=== PATIENT | male | born 1950 | race Native Hawaiian/Other Pacific Islander ===

== ENCOUNTER 2017-02-21 11:50 | Outpatient (CLI) | payer OTHER | END 2017-02-21 13:00 | disposition home or self-care (01) | LOC: RESP 11:50 | DX: J98.4 Other disorders of lung (principal) | CPT/HCPCS: 94640; 94664 ==

== ENCOUNTER 2018-06-07 10:39 | Outpatient (CLI) | payer OTHER | END 2018-06-07 23:13 | disposition home or self-care (01) | LOC: RESP 10:39 → RAD 10:39 → RESP 11:00 | DX: J44.9 Chronic obstructive pulmonary disease, unspecified (principal) ==

== ENCOUNTER 2019-08-25 09:36 | Outpatient (CLI) | payer OTHER | END 2019-08-25 19:52 | disposition home or self-care (01) | LOC: RESP 09:36 | DX: J98.4 Other disorders of lung (principal) ==

== ENCOUNTER 2020-01-19 13:59 | Outpatient (CLI) | payer OTHER ==
[2020-01-19 14:13] LABS: PLATELET COUNT 288 K/uL (142-355)
== END 2020-01-19 20:08 | disposition home or self-care (01) ==
LOC: LAB 13:59
PROVIDERS: Nurse Practitioner Family
DX: D64.89 Other specified anemias (principal)
CPT/HCPCS: 85027

== ENCOUNTER 2020-01-26 10:51 | Outpatient (CLI) | payer OTHER ==
[2020-01-26 11:09] LABS: PLATELET COUNT 277 K/uL (142-355)
== END 2020-01-26 23:59 | disposition home or self-care (01) ==
LOC: LAB 10:51
PROVIDERS: Internal Medicine
DX: D64.9 Anemia, unspecified (principal)
CPT/HCPCS: 85027

== ENCOUNTER 2020-01-27 11:50 | Outpatient (CLI) | payer OTHER ==
[2020-01-27 13:30] LABS: PLATELET COUNT 267 K/uL (142-355)
[2020-01-27 13:34] LABS: POTASSIUM 5.1 mmol/L (3.6-5.2)
== END 2020-01-27 21:25 | disposition home or self-care (01) ==
LOC: LAB 11:50
PROVIDERS: Internal Medicine
DX: E11.9 Type 2 diabetes mellitus without complications (principal); N17.9 Acute kidney failure, unspecified
CPT/HCPCS: 80053; 85027

== ENCOUNTER 2020-02-02 13:50 | Outpatient (CLI) | payer OTHER ==
[2020-02-02 14:31] LABS: PLATELET COUNT 279 K/uL (142-355)
== END 2020-02-02 22:30 | disposition home or self-care (01) ==
LOC: LAB 13:50
PROVIDERS: Internal Medicine
DX: D64.89 Other specified anemias (principal)
CPT/HCPCS: 85027

== ENCOUNTER 2020-02-05 02:03 | Emergency (ER) | payer OTHER ==
[~2020-02-05] VITALS: Ht 180.3 cm; Wt 145.2 kg
[2020-02-05 03:35] VITALS: BP 168/88; TEMP 98.3
== END 2020-02-05 03:35 | disposition home or self-care (01) ==
LOC: ED 02:03
DX: S39.012A Strain of muscle, fascia and tendon of lower back, initial encounter (principal); W18.39XA Other fall on same level, initial encounter; Y92.89 Other specified places as the place of occurrence of the external cause
CPT/HCPCS: 96372; 99283; J1885

== ENCOUNTER 2020-02-09 11:33 | Outpatient (CLI) | payer OTHER ==
[2020-02-09 11:59] LABS: PLATELET COUNT 344 K/uL (142-355)
[2020-02-09 12:20] LABS: POTASSIUM 4.5 mmol/L (3.6-5.2)
== END 2020-02-09 19:18 | disposition home or self-care (01) ==
LOC: LAB 11:33
PROVIDERS: Internal Medicine
DX: D64.89 Other specified anemias (principal); N18.3 Chronic kidney disease, stage 3 (moderate); E11.29 Type 2 diabetes mellitus with other diabetic kidney complication; D63.1 Anemia in chronic kidney disease; I12.9 Hypertensive chronic kidney disease with stage 1 through stage 4 chronic kidney disease, or unspecified chronic kidney disease
CPT/HCPCS: 80048; 82040; 82728; 82746; 83036; 83540; 83550; 84100; 84550; 85027

== ENCOUNTER 2020-02-16 09:38 | Outpatient (CLI) | payer OTHER ==
[2020-02-16 09:52] LABS: PLATELET COUNT 310 K/uL (142-355)
[2020-02-16 10:08] LABS: POTASSIUM 4.3 mmol/L (3.6-5.2)
== END 2020-02-16 20:30 | disposition home or self-care (01) ==
LOC: LAB 09:38
PROVIDERS: Nurse Practitioner Family
DX: D64.89 Other specified anemias (principal)
CPT/HCPCS: 80053; 85027

== ENCOUNTER 2020-02-23 10:21 | Outpatient (CLI) | payer OTHER ==
[2020-02-23 10:37] LABS: POTASSIUM 4.1 mmol/L (3.6-5.2)
[2020-02-23 10:39] LABS: PLATELET COUNT 278 K/uL (142-355)
== END 2020-02-23 19:16 | disposition home or self-care (01) ==
LOC: LAB 10:21
PROVIDERS: Internal Medicine
DX: I12.9 Hypertensive chronic kidney disease with stage 1 through stage 4 chronic kidney disease, or unspecified chronic kidney disease (principal); N18.3 Chronic kidney disease, stage 3 (moderate); E11.29 Type 2 diabetes mellitus with other diabetic kidney complication; D64.89 Other specified anemias
CPT/HCPCS: 80053; 83036; 84100; 84550; 85027

== ENCOUNTER 2020-03-01 09:53 | Outpatient (CLI) | payer OTHER ==
[2020-03-01 11:05] LABS: PLATELET COUNT 321 K/uL (142-355)
== END 2020-03-01 22:59 | disposition home or self-care (01) ==
LOC: LAB 09:53
PROVIDERS: Internal Medicine
DX: R10.9 Unspecified abdominal pain (principal); D64.89 Other specified anemias
CPT/HCPCS: 80053; 80074; 82248; 85027

== ENCOUNTER 2020-03-09 09:35 | Outpatient (CLI) | payer OTHER ==
[2020-03-09 11:00] LABS: POTASSIUM 4.9 mmol/L (3.6-5.2)
== END 2020-03-09 19:20 | disposition home or self-care (01) ==
LOC: LAB 09:35
PROVIDERS: Internal Medicine
DX: D64.89 Other specified anemias (principal)
CPT/HCPCS: 80053

== ENCOUNTER 2020-03-10 10:04 | Outpatient (CLI) | payer OTHER ==
[2020-03-10 10:52] LABS: PLATELET COUNT 300 K/uL (142-355)
== END 2020-03-10 23:24 | disposition home or self-care (01) ==
LOC: LAB 10:04
PROVIDERS: Internal Medicine
DX: D64.89 Other specified anemias (principal)
CPT/HCPCS: 85027

== ENCOUNTER 2020-03-15 09:58 | Outpatient (CLI) | payer OTHER ==
[2020-03-15 10:14] LABS: PLATELET COUNT 328 K/uL (142-355)
[2020-03-15 10:20] LABS: POTASSIUM 5.1 mmol/L (3.6-5.2)
== END 2020-03-15 19:15 | disposition home or self-care (01) ==
LOC: LAB 09:58
PROVIDERS: Internal Medicine
DX: D64.89 Other specified anemias (principal); I12.9 Hypertensive chronic kidney disease with stage 1 through stage 4 chronic kidney disease, or unspecified chronic kidney disease; N18.3 Chronic kidney disease, stage 3 (moderate); I25.10 Atherosclerotic heart disease of native coronary artery without angina pectoris; E11.65 Type 2 diabetes mellitus with hyperglycemia
CPT/HCPCS: 80053; 85027

== ENCOUNTER 2020-03-22 10:27 | Outpatient (CLI) | payer OTHER ==
[2020-03-22 10:39] LABS: PLATELET COUNT 306 K/uL (142-355)
== END 2020-03-22 19:10 | disposition home or self-care (01) ==
LOC: LAB 10:27
PROVIDERS: Internal Medicine
DX: D64.89 Other specified anemias (principal)
CPT/HCPCS: 80053; 85027

== ENCOUNTER 2020-03-29 09:35 | Outpatient (CLI) | payer OTHER ==
[2020-03-29 09:58] LABS: POTASSIUM 5.7 mmol/L (3.6-5.2)
[2020-03-29 10:00] LABS: PLATELET COUNT 290 K/uL (142-355)
== END 2020-03-29 23:29 | disposition home or self-care (01) ==
LOC: LAB 09:35
PROVIDERS: Internal Medicine
DX: D64.89 Other specified anemias (principal)
CPT/HCPCS: 80053; 85027

== ENCOUNTER 2020-04-06 11:30 | Outpatient (CLI) | payer OTHER ==
[2020-04-06 13:42] LABS: PLATELET COUNT 295 K/uL (142-355)
== END 2020-04-07 00:41 | disposition home or self-care (01) ==
LOC: LAB 11:30
PROVIDERS: Internal Medicine
DX: D64.89 Other specified anemias (principal); I12.9 Hypertensive chronic kidney disease with stage 1 through stage 4 chronic kidney disease, or unspecified chronic kidney disease; N18.30 Chronic kidney disease, stage 3 unspecified
CPT/HCPCS: 80053; 85027

== ENCOUNTER 2020-04-12 10:06 | Outpatient (CLI) | payer OTHER ==
[2020-04-12 10:23] LABS: PLATELET COUNT 304 K/uL (142-355)
[2020-04-12 10:56] LABS: POTASSIUM 5.2 mmol/L (3.6-5.2)
== END 2020-04-12 19:11 | disposition home or self-care (01) ==
LOC: LAB 10:06
PROVIDERS: Internal Medicine
DX: D64.89 Other specified anemias (principal); I12.9 Hypertensive chronic kidney disease with stage 1 through stage 4 chronic kidney disease, or unspecified chronic kidney disease
CPT/HCPCS: 80053; 85027

== ENCOUNTER 2020-04-19 10:42 | Outpatient (CLI) | payer OTHER ==
[2020-04-19 11:01] LABS: PLATELET COUNT 290 K/uL (142-355)
[2020-04-19 11:05] LABS: POTASSIUM 4.8 mmol/L (3.6-5.2)
== END 2020-04-19 22:30 | disposition home or self-care (01) ==
LOC: LAB 10:42
PROVIDERS: Internal Medicine
DX: D64.89 Other specified anemias (principal); N19 Unspecified kidney failure
CPT/HCPCS: 80053; 85027

== ENCOUNTER 2020-04-26 10:08 | Outpatient (CLI) | payer OTHER ==
[2020-04-26 11:06] LABS: PLATELET COUNT 283 K/uL (142-355)
[2020-04-26 11:12] LABS: POTASSIUM 4.4 mmol/L (3.6-5.2)
== END 2020-04-26 20:28 | disposition home or self-care (01) ==
LOC: LAB 10:08
PROVIDERS: Internal Medicine
DX: D64.89 Other specified anemias (principal)
CPT/HCPCS: 80053; 85027

== ENCOUNTER 2020-05-17 10:48 | Outpatient (CLI) | payer OTHER ==
[2020-05-17 11:21] LABS: PLATELET COUNT 379 K/uL (142-355)
[2020-05-17 11:22] LABS: POTASSIUM 4.5 mmol/L (3.6-5.2)
== END 2020-05-17 23:15 | disposition home or self-care (01) ==
LOC: LAB 10:48
PROVIDERS: ATTEND Internal Medicine
DX: I12.9 Hypertensive chronic kidney disease with stage 1 through stage 4 chronic kidney disease, or unspecified chronic kidney disease (principal); N18.30 Chronic kidney disease, stage 3 unspecified
CPT/HCPCS: 80053; 85027

== ENCOUNTER 2020-05-24 17:42 | Outpatient (CLI) | payer OTHER ==
[2020-05-24 18:54] LABS: POTASSIUM 4.7 mmol/L (3.6-5.2)
[2020-05-24 18:57] LABS: PLATELET COUNT 315 K/uL (142-355)
== END 2020-05-24 19:01 | disposition home or self-care (01) ==
LOC: LAB 17:42
PROVIDERS: ATTEND Internal Medicine
DX: N18.30 Chronic kidney disease, stage 3 unspecified (principal)
CPT/HCPCS: 80053; 85007; 85027

== ENCOUNTER 2020-05-31 11:02 | Outpatient (CLI) | payer OTHER ==
[2020-05-31 11:30] LABS: PLATELET COUNT 181 K/uL (142-355)
[2020-05-31 11:47] LABS: POTASSIUM 4.4 mmol/L (3.6-5.2)
== END 2020-05-31 22:10 | disposition home or self-care (01) ==
LOC: LAB 11:02
PROVIDERS: ATTEND Internal Medicine
DX: D64.89 Other specified anemias (principal)
CPT/HCPCS: 80053; 85027

== ENCOUNTER 2020-06-07 10:34 | Outpatient (CLI) | payer OTHER ==
[2020-06-07 12:49] LABS: PLATELET COUNT 215 K/uL (142-355)
[2020-06-07 13:02] LABS: POTASSIUM 4.3 mmol/L (3.6-5.2)
== END 2020-06-07 19:41 | disposition home or self-care (01) ==
LOC: LAB 10:34
PROVIDERS: ATTEND Internal Medicine Hematology & Oncology
DX: C18.0 Malignant neoplasm of cecum (principal); D64.89 Other specified anemias; E53.8 Deficiency of other specified B group vitamins; N18.30 Chronic kidney disease, stage 3 unspecified; I12.9 Hypertensive chronic kidney disease with stage 1 through stage 4 chronic kidney disease, or unspecified chronic kidney disease
CPT/HCPCS: 80053; 82784; 83883; 84100; 84165; 84550; 85027

== ENCOUNTER 2020-06-14 10:31 | Outpatient (CLI) | payer OTHER ==
[2020-06-14 10:43] LABS: PLATELET COUNT 270 K/uL (142-355)
[2020-06-14 11:05] LABS: POTASSIUM 4.5 mmol/L (3.6-5.2)
== END 2020-06-14 21:28 | disposition home or self-care (01) ==
LOC: LAB 10:31
PROVIDERS: ATTEND Internal Medicine
DX: D64.89 Other specified anemias (principal); N18.30 Chronic kidney disease, stage 3 unspecified
CPT/HCPCS: 80053; 85027

== ENCOUNTER 2020-06-21 11:05 | Outpatient (CLI) | payer OTHER ==
[2020-06-21 11:34] LABS: PLATELET COUNT 273 K/uL (142-355)
== END 2020-06-21 19:37 | disposition home or self-care (01) ==
LOC: LAB 11:05
PROVIDERS: ATTEND Internal Medicine
DX: Z48.815 Encounter for surgical aftercare following surgery on the digestive system (principal); D64.89 Other specified anemias
CPT/HCPCS: 80053; 85027

== ENCOUNTER 2020-06-28 11:36 | Outpatient (CLI) | payer OTHER ==
[2020-06-28 12:16] LABS: PLATELET COUNT 261 K/uL (142-355)
[2020-06-28 12:26] LABS: POTASSIUM 4.2 mmol/L (3.6-5.2)
== END 2020-06-28 21:58 | disposition home or self-care (01) ==
LOC: LAB 11:36
PROVIDERS: ATTEND Internal Medicine
DX: I12.9 Hypertensive chronic kidney disease with stage 1 through stage 4 chronic kidney disease, or unspecified chronic kidney disease (principal); N18.30 Chronic kidney disease, stage 3 unspecified
CPT/HCPCS: 80053; 85027

== ENCOUNTER 2020-07-05 11:04 | Outpatient (CLI) | payer OTHER ==
[2020-07-05 11:43] LABS: PLATELET COUNT 254 K/uL (142-355)
[2020-07-05 11:54] LABS: POTASSIUM 4.3 mmol/L (3.6-5.2)
== END 2020-07-05 21:08 | disposition home or self-care (01) ==
LOC: LAB 11:04
PROVIDERS: ATTEND Internal Medicine
DX: D64.89 Other specified anemias (principal)
CPT/HCPCS: 80053; 85027

== ENCOUNTER 2020-07-12 10:48 | Outpatient (CLI) | payer OTHER ==
[2020-07-12 11:10] LABS: PLATELET COUNT 253 K/uL (142-355)
[2020-07-12 11:19] LABS: POTASSIUM 4.5 mmol/L (3.6-5.2)
== END 2020-07-12 20:33 | disposition home or self-care (01) ==
LOC: LAB 10:48
PROVIDERS: ATTEND Internal Medicine
DX: D64.89 Other specified anemias (principal); N18.30 Chronic kidney disease, stage 3 unspecified
CPT/HCPCS: 80053; 85027

== ENCOUNTER 2020-07-19 11:00 | Outpatient (CLI) | payer OTHER ==
[2020-07-19 11:36] LABS: PLATELET COUNT 236 K/uL (142-355)
[2020-07-19 11:49] LABS: POTASSIUM 4.3 mmol/L (3.6-5.2)
== END 2020-07-19 19:22 | disposition home or self-care (01) ==
LOC: LAB 11:00
PROVIDERS: ATTEND Internal Medicine
DX: I12.9 Hypertensive chronic kidney disease with stage 1 through stage 4 chronic kidney disease, or unspecified chronic kidney disease (principal); N18.30 Chronic kidney disease, stage 3 unspecified; E11.65 Type 2 diabetes mellitus with hyperglycemia
CPT/HCPCS: 80053; 84100; 84550; 85027

== ENCOUNTER 2020-07-26 10:05 | Outpatient (CLI) | payer OTHER ==
[2020-07-26 10:25] LABS: PLATELET COUNT 220 K/uL (142-355)
[2020-07-26 11:20] LABS: POTASSIUM 4.1 mmol/L (3.6-5.2)
== END 2020-07-26 19:02 | disposition home or self-care (01) ==
LOC: LAB 10:05
PROVIDERS: ATTEND Internal Medicine
DX: I12.9 Hypertensive chronic kidney disease with stage 1 through stage 4 chronic kidney disease, or unspecified chronic kidney disease (principal); N18.30 Chronic kidney disease, stage 3 unspecified; E11.65 Type 2 diabetes mellitus with hyperglycemia
CPT/HCPCS: 80053; 85027

== ENCOUNTER 2020-08-02 10:05 | Outpatient (CLI) | payer OTHER ==
[2020-08-02 10:18] LABS: PLATELET COUNT 236 K/uL (142-355)
[2020-08-02 10:27] LABS: POTASSIUM 3.9 mmol/L (3.6-5.2)
== END 2020-08-02 19:17 | disposition home or self-care (01) ==
LOC: LAB 10:05
PROVIDERS: ATTEND Internal Medicine
DX: D64.89 Other specified anemias (principal); N18.30 Chronic kidney disease, stage 3 unspecified; E11.65 Type 2 diabetes mellitus with hyperglycemia
CPT/HCPCS: 80053; 85008; 85027

== ENCOUNTER 2020-08-09 11:22 | Outpatient (CLI) | payer OTHER ==
[2020-08-09 12:27] LABS: POTASSIUM 4.2 mmol/L (3.6-5.2)
[2020-08-09 12:35] LABS: PLATELET COUNT 267 K/uL (142-355)
== END 2020-08-09 22:43 | disposition home or self-care (01) ==
LOC: LAB 11:22
PROVIDERS: ATTEND Internal Medicine
DX: I12.9 Hypertensive chronic kidney disease with stage 1 through stage 4 chronic kidney disease, or unspecified chronic kidney disease (principal); I25.10 Atherosclerotic heart disease of native coronary artery without angina pectoris; E11.65 Type 2 diabetes mellitus with hyperglycemia; D64.89 Other specified anemias
CPT/HCPCS: 80053; 85027

== ENCOUNTER 2020-08-16 10:34 | Outpatient (CLI) | payer OTHER ==
[2020-08-16 12:00] LABS: PLATELET COUNT 240 K/uL (142-355)
== END 2020-08-16 19:32 | disposition home or self-care (01) ==
LOC: LAB 10:34
PROVIDERS: ATTEND Internal Medicine
DX: E55.9 Vitamin D deficiency, unspecified (principal); M1A.09X0 Idiopathic chronic gout, multiple sites, without tophus (tophi); M32.10 Systemic lupus erythematosus, organ or system involvement unspecified; M85.89 Other specified disorders of bone density and structure, multiple sites; Z79.899 Other long term (current) drug therapy
CPT/HCPCS: 80053; 82306; 84550; 85027; 85652; 86140

== ENCOUNTER 2020-09-06 10:58 | Outpatient (CLI) | payer OTHER ==
[2020-09-06 11:47] LABS: PLATELET COUNT 242 K/uL (142-355)
[2020-09-06 12:59] LABS: POTASSIUM 3.9 mmol/L (3.6-5.2)
== END 2020-09-06 19:22 | disposition home or self-care (01) ==
LOC: LAB 10:58
PROVIDERS: ATTEND Internal Medicine Medical Oncology
DX: C18.0 Malignant neoplasm of cecum (principal); D64.89 Other specified anemias; E53.8 Deficiency of other specified B group vitamins
CPT/HCPCS: 80053; 82378; 82728; 83540; 83550; 85027; 85044

== ENCOUNTER 2020-10-11 10:54 | Outpatient (CLI) | payer OTHER ==
[2020-10-11 11:22] LABS: PLATELET COUNT 262 K/uL (142-355)
[2020-10-11 11:56] LABS: POTASSIUM 4.2 mmol/L (3.6-5.2)
== END 2020-10-11 19:13 | disposition home or self-care (01) ==
LOC: LAB 10:54
PROVIDERS: ATTEND Internal Medicine
DX: I12.9 Hypertensive chronic kidney disease with stage 1 through stage 4 chronic kidney disease, or unspecified chronic kidney disease (principal); N18.30 Chronic kidney disease, stage 3 unspecified; E11.29 Type 2 diabetes mellitus with other diabetic kidney complication
CPT/HCPCS: 80053; 80061; 83036; 84100; 85027

== ENCOUNTER 2020-10-22 09:57 | Outpatient (CLI) | payer OTHER ==
[2020-10-22 10:07] LABS: PLATELET COUNT 208 K/uL (142-355)
[2020-10-22 10:19] LABS: POTASSIUM 4.6 mmol/L (3.6-5.2)
== END 2020-10-22 20:53 | disposition home or self-care (01) ==
LOC: LAB 09:57
PROVIDERS: ATTEND Internal Medicine
DX: I12.9 Hypertensive chronic kidney disease with stage 1 through stage 4 chronic kidney disease, or unspecified chronic kidney disease (principal); N18.30 Chronic kidney disease, stage 3 unspecified; E11.65 Type 2 diabetes mellitus with hyperglycemia; N18.4 Chronic kidney disease, stage 4 (severe); E11.29 Type 2 diabetes mellitus with other diabetic kidney complication
CPT/HCPCS: 36415; 80069; 85027

== ENCOUNTER 2020-11-16 11:31 | Outpatient (CLI) | payer OTHER ==
[2020-11-16 11:52] LABS: PLATELET COUNT 258 K/uL (142-355)
[2020-11-16 12:33] LABS: POTASSIUM 4.3 mmol/L (3.6-5.2)
== END 2020-11-16 19:35 | disposition home or self-care (01) ==
LOC: LAB 11:31
PROVIDERS: ATTEND Nurse Practitioner Family
DX: E55.9 Vitamin D deficiency, unspecified (principal); M1A.09X0 Idiopathic chronic gout, multiple sites, without tophus (tophi); M32.10 Systemic lupus erythematosus, organ or system involvement unspecified; Z79.52 Long term (current) use of systemic steroids; Z79.899 Other long term (current) drug therapy
CPT/HCPCS: 80053; 82306; 85027; 85652; 86140; 86160; 86225

== ENCOUNTER 2020-11-19 10:37 | Outpatient (CLI) | payer OTHER | END 2020-11-19 22:19 | disposition home or self-care (01) | LOC: LAB 10:37 | PROVIDERS: ATTEND Nurse Practitioner Family | DX: E55.9 Vitamin D deficiency, unspecified (principal); M1A.09X0 Idiopathic chronic gout, multiple sites, without tophus (tophi); M32.10 Systemic lupus erythematosus, organ or system involvement unspecified; Z79.52 Long term (current) use of systemic steroids; Z79.899 Other long term (current) drug therapy | CPT/HCPCS: 81000 ==

== ENCOUNTER 2020-12-01 12:12 | Outpatient (CLI) | payer OTHER ==
[2020-12-01 12:46] LABS: PLATELET COUNT 230 K/uL (142-355)
== END 2020-12-01 21:02 | disposition home or self-care (01) ==
LOC: LAB 12:12
PROVIDERS: ATTEND Nurse Practitioner Family
DX: C18.0 Malignant neoplasm of cecum (principal); D64.89 Other specified anemias; E53.8 Deficiency of other specified B group vitamins
CPT/HCPCS: 80053; 82378; 82607; 82728; 82746; 82784; 82787; 83540; 83550; 83883; 84165; 85027; 85044

== ENCOUNTER 2020-12-13 10:50 | Outpatient (CLI) | payer OTHER ==
[2020-12-13 11:18] LABS: PLATELET COUNT 259 K/uL (142-355)
[2020-12-13 11:33] LABS: POTASSIUM 4.4 mmol/L (3.6-5.2)
== END 2020-12-13 20:00 | disposition home or self-care (01) ==
LOC: LAB 10:50
PROVIDERS: ATTEND Internal Medicine
DX: I12.9 Hypertensive chronic kidney disease with stage 1 through stage 4 chronic kidney disease, or unspecified chronic kidney disease (principal); N18.30 Chronic kidney disease, stage 3 unspecified
CPT/HCPCS: 80053; 85027

== ENCOUNTER 2021-01-10 11:13 | Outpatient (CLI) | payer OTHER ==
[2021-01-10 11:35] LABS: PLATELET COUNT 253 K/uL (142-355)
== END 2021-01-10 21:26 | disposition home or self-care (01) ==
LOC: LAB 11:13
PROVIDERS: ATTEND Internal Medicine
DX: D64.89 Other specified anemias (principal); E11.65 Type 2 diabetes mellitus with hyperglycemia; N18.30 Chronic kidney disease, stage 3 unspecified; I12.9 Hypertensive chronic kidney disease with stage 1 through stage 4 chronic kidney disease, or unspecified chronic kidney disease
CPT/HCPCS: 80053; 85027

== ENCOUNTER 2021-02-09 10:32 | Outpatient (CLI) | payer OTHER | END 2021-02-09 18:58 | disposition home or self-care (01) | LOC: LAB 10:32 | PROVIDERS: ATTEND Nurse Practitioner Family | DX: E55.9 Vitamin D deficiency, unspecified (principal); E56.8 Deficiency of other vitamins; M1A.09X0 Idiopathic chronic gout, multiple sites, without tophus (tophi); M32.10 Systemic lupus erythematosus, organ or system involvement unspecified; Z79.899 Other long term (current) drug therapy | CPT/HCPCS: 81000; 87088 ==

== ENCOUNTER 2021-03-01 13:01 | Outpatient (CLI) | payer OTHER ==
[2021-03-01 13:51] LABS: PLATELET COUNT 226 K/uL (142-355)
[2021-03-01 14:19] LABS: POTASSIUM 4.1 mmol/L (3.6-5.2)
== END 2021-03-01 20:53 | disposition home or self-care (01) ==
LOC: LAB 13:01
PROVIDERS: ATTEND Internal Medicine
DX: I12.9 Hypertensive chronic kidney disease with stage 1 through stage 4 chronic kidney disease, or unspecified chronic kidney disease (principal); N18.30 Chronic kidney disease, stage 3 unspecified
CPT/HCPCS: 80048; 82040; 84100; 84550; 85027

== ENCOUNTER 2021-03-10 11:28 | Outpatient (CLI) | payer OTHER ==
[2021-03-10 11:50] LABS: PLATELET COUNT 293 K/uL (142-355)
[2021-03-10 11:56] LABS: POTASSIUM 4.2 mmol/L (3.6-5.2)
== END 2021-03-10 19:11 | disposition home or self-care (01) ==
LOC: LAB 11:28
PROVIDERS: ATTEND Internal Medicine
DX: I12.9 Hypertensive chronic kidney disease with stage 1 through stage 4 chronic kidney disease, or unspecified chronic kidney disease (principal); N18.30 Chronic kidney disease, stage 3 unspecified
CPT/HCPCS: 80053; 85027

== ENCOUNTER 2021-04-07 14:08 | Outpatient (CLI) | payer OTHER ==
[2021-04-07 15:06] LABS: PLATELET COUNT 242 K/uL (142-355)
[2021-04-07 15:36] LABS: POTASSIUM 3.7 mmol/L (3.6-5.2)
== END 2021-04-07 19:34 | disposition home or self-care (01) ==
LOC: LAB 14:08
PROVIDERS: ATTEND Internal Medicine Medical Oncology
DX: C18.0 Malignant neoplasm of cecum (principal); D64.89 Other specified anemias; E53.8 Deficiency of other specified B group vitamins; N18.30 Chronic kidney disease, stage 3 unspecified; I12.9 Hypertensive chronic kidney disease with stage 1 through stage 4 chronic kidney disease, or unspecified chronic kidney disease
CPT/HCPCS: 80053; 82378; 84100; 84550; 85027

== ENCOUNTER 2021-04-18 10:29 | Outpatient (CLI) | payer OTHER ==
[2021-04-18 10:50] LABS: PLATELET COUNT 248 K/uL (142-355)
== END 2021-04-18 20:05 | disposition home or self-care (01) ==
LOC: LAB 10:29
PROVIDERS: ATTEND Internal Medicine
DX: I12.9 Hypertensive chronic kidney disease with stage 1 through stage 4 chronic kidney disease, or unspecified chronic kidney disease (principal); N18.30 Chronic kidney disease, stage 3 unspecified
CPT/HCPCS: 36415; 80069; 85027

== ENCOUNTER 2021-04-25 12:11 | Outpatient (CLI) | payer OTHER ==
[2021-04-25 12:56] LABS: PLATELET COUNT 268 K/uL (142-355)
[2021-04-25 13:19] LABS: POTASSIUM 3.8 mmol/L (3.6-5.2)
== END 2021-04-25 19:09 | disposition home or self-care (01) ==
LOC: LAB 12:11
PROVIDERS: ATTEND Internal Medicine
DX: I12.9 Hypertensive chronic kidney disease with stage 1 through stage 4 chronic kidney disease, or unspecified chronic kidney disease (principal); N18.30 Chronic kidney disease, stage 3 unspecified
CPT/HCPCS: 80069; 85027

== ENCOUNTER 2021-05-05 11:08 | Outpatient (CLI) | payer OTHER ==
[2021-05-05 11:19] LABS: PLATELET COUNT 253 K/uL (142-355)
[2021-05-05 11:39] LABS: POTASSIUM 3.8 mmol/L (3.6-5.2)
== END 2021-05-05 19:00 | disposition home or self-care (01) ==
LOC: LAB 11:08
PROVIDERS: ATTEND Internal Medicine
DX: N18.30 Chronic kidney disease, stage 3 unspecified (principal); N17.9 Acute kidney failure, unspecified
CPT/HCPCS: 80053; 84100; 84550; 85027

== ENCOUNTER 2021-05-11 10:18 | Outpatient (CLI) | payer OTHER ==
[2021-05-11 11:22] LABS: PLATELET COUNT 239 K/uL (142-355)
[2021-05-11 11:29] LABS: POTASSIUM 4.3 mmol/L (3.6-5.2)
== END 2021-05-11 20:42 | disposition home or self-care (01) ==
LOC: LAB 10:18
PROVIDERS: ATTEND Internal Medicine
DX: N18.30 Chronic kidney disease, stage 3 unspecified (principal); N17.9 Acute kidney failure, unspecified
CPT/HCPCS: 80048; 82040; 84100; 84550; 85027

== ENCOUNTER 2021-06-02 10:38 | Outpatient (CLI) | payer OTHER ==
[2021-06-02 13:40] LABS: POTASSIUM 4.2 mmol/L (3.6-5.2)
[2021-06-02 14:08] LABS: PLATELET COUNT 236 K/uL (142-355)
== END 2021-06-02 18:59 | disposition home or self-care (01) ==
LOC: LAB 10:38
PROVIDERS: ATTEND Nurse Practitioner Family
DX: I12.9 Hypertensive chronic kidney disease with stage 1 through stage 4 chronic kidney disease, or unspecified chronic kidney disease (principal); N18.30 Chronic kidney disease, stage 3 unspecified; E55.9 Vitamin D deficiency, unspecified; M1A.09X0 Idiopathic chronic gout, multiple sites, without tophus (tophi); M32.10 Systemic lupus erythematosus, organ or system involvement unspecified; M32.8 Other forms of systemic lupus erythematosus; Z79.899 Other long term (current) drug therapy
CPT/HCPCS: 80053; 82306; 84100; 84550; 85027; 85652; 86140; 86160; 86225

== ENCOUNTER 2021-06-20 10:39 | Outpatient (CLI) | payer OTHER ==
[2021-06-20 11:50] LABS: POTASSIUM 5.4 mmol/L (3.6-5.2)
[2021-06-20 11:54] LABS: PLATELET COUNT 204 K/uL (142-355)
== END 2021-06-20 19:01 | disposition home or self-care (01) ==
LOC: LAB 10:39
PROVIDERS: ATTEND Internal Medicine
DX: I12.9 Hypertensive chronic kidney disease with stage 1 through stage 4 chronic kidney disease, or unspecified chronic kidney disease (principal); D64.89 Other specified anemias; N18.30 Chronic kidney disease, stage 3 unspecified
CPT/HCPCS: 80048; 82040; 84100; 84550; 85027

== ENCOUNTER 2021-07-19 10:22 | Outpatient (CLI) | payer OTHER ==
[2021-07-19 15:12] LABS: PLATELET COUNT 268 K/uL (142-355)
[2021-07-19 15:16] LABS: POTASSIUM 4.4 mmol/L (3.6-5.2)
== END 2021-07-19 18:52 | disposition home or self-care (01) ==
LOC: LAB 10:22
PROVIDERS: ATTEND Internal Medicine
DX: I12.9 Hypertensive chronic kidney disease with stage 1 through stage 4 chronic kidney disease, or unspecified chronic kidney disease (principal); N18.30 Chronic kidney disease, stage 3 unspecified; E55.9 Vitamin D deficiency, unspecified; M1A.09X0 Idiopathic chronic gout, multiple sites, without tophus (tophi); M32.10 Systemic lupus erythematosus, organ or system involvement unspecified; M32.8 Other forms of systemic lupus erythematosus; Z79.899 Other long term (current) drug therapy
CPT/HCPCS: 80053; 81000; 84100; 84550; 85027; 85652; 86140; 86160; 86225

== ENCOUNTER 2021-08-19 10:22 | Outpatient (CLI) | payer OTHER ==
[2021-08-19 10:34] LABS: PLATELET COUNT 222 K/uL (142-355)
[2021-08-19 11:19] LABS: POTASSIUM 4.4 mmol/L (3.6-5.2)
== END 2021-08-19 20:03 | disposition home or self-care (01) ==
LOC: LAB 10:22
PROVIDERS: ATTEND Internal Medicine
DX: I12.9 Hypertensive chronic kidney disease with stage 1 through stage 4 chronic kidney disease, or unspecified chronic kidney disease (principal); N18.30 Chronic kidney disease, stage 3 unspecified; E11.65 Type 2 diabetes mellitus with hyperglycemia
CPT/HCPCS: 80053; 85027

== ENCOUNTER 2021-09-06 11:02 | Outpatient (CLI) | payer OTHER ==
[2021-09-06 11:20] LABS: PLATELET COUNT 221 K/uL (142-355)
[2021-09-06 11:28] LABS: POTASSIUM 5.2 mmol/L (3.6-5.2)
== END 2021-09-06 18:58 | disposition home or self-care (01) ==
LOC: LAB 11:02
PROVIDERS: ATTEND Nurse Practitioner Family
DX: I12.9 Hypertensive chronic kidney disease with stage 1 through stage 4 chronic kidney disease, or unspecified chronic kidney disease (principal); N18.30 Chronic kidney disease, stage 3 unspecified; E11.65 Type 2 diabetes mellitus with hyperglycemia; M32.8 Other forms of systemic lupus erythematosus; J44.9 Chronic obstructive pulmonary disease, unspecified
CPT/HCPCS: 80053; 85027